=== PATIENT | female | born 1960 | race Caucasian/White ===

== ENCOUNTER → 2016-09-05 | Day surgery (SDC) | payer OTHER | END | disposition home or self-care (01) | LOC: FAS 08:17 | DX: H26.9 Unspecified cataract (principal); Z88.8 Allergy status to other drugs, medicaments and biological substances; Z79.82 Long term (current) use of aspirin; Z79.899 Other long term (current) drug therapy; Z98.890 Other specified postprocedural states; K21.9 Gastro-esophageal reflux disease without esophagitis; M79.7 Fibromyalgia; M19.90 Unspecified osteoarthritis, unspecified site; M85.80 Other specified disorders of bone density and structure, unspecified site | CPT/HCPCS: V2632 ==

== ENCOUNTER 2020-08-22 09:12 | Day surgery (SDC) | payer OTHER ==
[~2020-08-22] VITALS: Ht 173 cm; Wt 103.0 kg
[~2020-08-22 09:12] MED LIST: ASCORBIC ACID500 MG PO; ATIVAN0.5 MG PO; B COMPLEX SUBLI59 ML SL; ESCITALOPRAM OX20 MG PO; MELOXICAM15 MG PO; OMEPRAZOLE40 MG PO; SYNTHROID50 MC1 PO; TRAMADOL HCL50 MG PO; VITAMIN D3125 MC2 PO
--- NOTE | 2020-08-22 15:25 | NUR ---
Spoke with [facility] Ty pts xarelto will be $20.00 total.
--- NOTE | 2020-08-22 16:05 | NUR ---
Spoke with pt about rehab, pharmacy, and DME pt chose [facility] appt setup for 08-23-20 2:30 for paperwork and 3:00pm for appt, [facility] to deliver rolling walker and 3:1, pt ok with $20.00 total for zoey script.
[2020-08-23 05:43] LABS: BASOPHIL 0.2 % (0-2); EOSINOPHIL 0 % (0-5); HCT 36.4 % (37.0-47.0); HGB 12.1 g/dl (12.5-16.0); LYMPHOCYTE 3.7 % (15-48); MCH 27.6 pg (25.0-31.0); MCHC 33.2 g/dL (32.0-36.0); MCV 82.9 fL (78.0-100.0); NEUTROPHIL 91.5 % (41-80); NRBC 0; PLT 348 K/uL (150-400); RBC 4.39 M/uL (4.20-5.40); RDW 13.2 % (11.5-14.0); WBC 16.3 K/uL (4.0-10.5)
[2020-08-23 06:09] LABS: BUN/CREAT RATIO (CALC) 22.7 RATIO; CREATININE 0.66 mg/dL (0.51-0.95)
[2020-08-23 06:22] LABS: POTASSIUM 4.5 mmol/L (3.5-5.1)
--- NOTE | 2020-08-23 09:34 | NUR ---
Please fax DC summary to KATHI downing of [place] [facility] [place], [phone]
[2020-08-23] MEDS ORDERED: XARELTO10 MG PO (09:40)
[2020-08-23] MEDS ORDERED: FEOSOL325 MG PO (09:40)
[2020-08-23] MEDS ORDERED: OXYCODONE-ACET1 EAC1 PO (09:40)
[2020-08-23] MEDS ORDERED: ULTRA-LIGHT RO1 EACH XX (10:00)
== END 2020-08-23 12:00 | disposition home or self-care (01) ==
LOC: FMS 09:12 → FAS 09:12 → FMS 13:21 → FAS 08-23 12:00
PROVIDERS: Legal Medicine
DX: M17.0 Bilateral primary osteoarthritis of knee (principal); E03.9 Hypothyroidism, unspecified; G47.33 Obstructive sleep apnea (adult) (pediatric); K21.9 Gastro-esophageal reflux disease without esophagitis; Z99.89 Dependence on other enabling machines and devices; Z91.012 Allergy to eggs; Z91.030 Bee allergy status; Z91.018 Allergy to other foods; Z91.011 Allergy to milk products; Z79.891 Long term (current) use of opiate analgesic; Z79.899 Other long term (current) drug therapy
CPT/HCPCS: 36415; 73560; 80048; 85025; 86850; 86900; 86901; 94010; 94762; 97110; 97162; 97166; 97530-GP; 97535; C1713; C1766; C1776; J0171; J0697; J1040; J1100; J1170; J1885; J2250; J2270; J2704; J2795; J3010; J3490; J7120